=== PATIENT | female | born 1980 | race Two or more races ===

== ENCOUNTER 2021-04-20 06:30 | Day surgery (SDC) | payer OTHER ==
[2021-04-20] MEDS ORDERED: PERCOCET 5-3251 EACH PO (12:07)
[2021-04-20] MEDS ORDERED: COLACE100 MG PO (12:07)
[2021-04-20] MEDS ORDERED: NEURONTIN600 M1 PO (12:07)
== END 2021-04-20 16:25 | disposition home or self-care (01) ==
LOC: CIR.AMB 06:30
PROVIDERS: ATTEND Surgery
DX: K43.0 Incisional hernia with obstruction, without gangrene (principal); Z20.822 Contact with and (suspected) exposure to COVID-19